=== PATIENT | female | born 1980 | race Two or more races ===

== ENCOUNTER 2018-07-30 17:20 | Emergency (ER) | payer MEDICAID, OTHER ==
[~2018-07-30] VITALS: Ht 160 cm; Wt 70.8 kg
[2018-07-30 17:40] VITALS: BP 123/66
[2018-07-30] MEDS ORDERED: cefTRIAXone SOD 1,000 MG VL IM ONE (19:15)
[2018-07-30] MEDS ORDERED: methylPREDNISolone SOD SUCC 125 MG/2 ML VL IM ONE (19:15)
== END 2018-07-30 19:54 | disposition home or self-care (01) ==
LOC: ER 17:27
DX: R21 Rash and other nonspecific skin eruption (principal)
CPT/HCPCS: 96372; 99283; J0696; J2930

== ENCOUNTER 2018-08-18 18:07 | Emergency (ER) | payer MEDICAID ==
[~2018-08-18] VITALS: Ht 160 cm; Wt 75.7 kg
[2018-08-18 19:15] VITALS: BP 129/76
== END 2018-08-18 21:29 | disposition home or self-care (01) ==
LOC: ER 18:15
DX: L03.313 Cellulitis of chest wall (principal); L30.9 Dermatitis, unspecified

== ENCOUNTER 2022-06-27 12:10 | Emergency (ER) | payer MEDICAID ==
[~2022-06-27] VITALS: Ht 160 cm; Wt 74.9 kg
[2022-06-27 13:39] VITALS: BP 111/54
[2022-06-27] MEDS ORDERED: IBUP800T27 PO (13:54)
== END 2022-06-27 14:01 | disposition home or self-care (01) ==
LOC: ER 12:10
DX: S83.92XA Sprain of unspecified site of left knee, initial encounter (principal); W18.09XA Striking against other object with subsequent fall, initial encounter; Y93.01 Activity, walking, marching and hiking; Y92.89 Other specified places as the place of occurrence of the external cause; Y99.8 Other external cause status
CPT/HCPCS: 73562

== ENCOUNTER 2023-03-29 15:55 | Emergency (ER) | payer MEDICAID ==
[~2023-03-29] VITALS: Ht 160 cm; Wt 76.6 kg
[~2023-03-29 15:55] MED LIST: IBUP-1456 PO
[2023-03-29] MEDS ORDERED: TETANUS-DIPTH-ACEL PERTUSSIS 0.5ML SYR Tdap IM ONE (17:00)
[2023-03-29] MEDS ORDERED: CEPH250C PO (17:50)
[2023-03-29 18:00] VITALS: BP 122/64; PULSE 94; RESP 18; TEMP 97.6; O2SAT 98
== END 2023-03-29 18:16 | disposition home or self-care (01) ==
LOC: ER 15:55
DX: S61.211A Laceration without foreign body of left index finger without damage to nail, initial encounter (principal); Z79.1 Long term (current) use of non-steroidal anti-inflammatories (NSAID); W26.8XXA Contact with other sharp object(s), not elsewhere classified, initial encounter; Y93.89 Activity, other specified; Y92.89 Other specified places as the place of occurrence of the external cause; Y99.8 Other external cause status
CPT/HCPCS: 12001

== ENCOUNTER 2023-07-22 22:45 | Emergency (ER) | payer MEDICAID ==
[~2023-07-22] VITALS: Ht 160 cm; Wt 76.0 kg
[~2023-07-22 22:45] MED LIST changes: +CEPH250C PO
[2023-07-22 23:32] VITALS: BP 135/74; PULSE 94; RESP 18; O2SAT 98
[2023-07-23 00:16] LABS: Basophils # (auto) 0.1 10 ^3/uL (0-0.2); Basophils % (auto) 0.7 % (0.0-2.0); Eosinophils # (auto) 0.2 10 ^3/uL (0-0.8); Eosinophils % (auto) 2.1 % (0.0-7.0); Hematocrit 39.6 % (36.0-46.0); Hemoglobin 13.2 g/dL (12.2-16.2); Lymphocytes # (auto) 1.4 10 ^3/uL (0.4-5.4); Lymphocytes % (auto) 18.9 % (10.0-50.0); Mean Corpuscular Hemoglobin 31.5 pg (28.0-32.0); Mean Corpuscular Hgb Conc. 33.4 g/dL (32.0-36.0); Mean Corpuscular Volume 94.5 fL (80.0-100.0); Monocytes # (auto) 0.5 10 ^3/uL (0-1.3); Monocytes % (auto) 7.6 % (0.0-12.0); Neutrophils # (auto) 5.1 10 ^3/uL (1.6-8.6); Neutrophils % (auto) 70.7 % (37.0-80.0); Nucleated Red Blood Cells % 0.1 %; Red Blood Cells 4.19 10^6/uL (4.0-5.20); White Blood Cell 7.2 10^3/uL (4.4-10.8)
[2023-07-23 00:24] LABS: Chloride 109 mmol/L (98-107); Potassium 3.8 mmol/L (3.5-5.1); Sodium 138 mmol/L (136-145)
[2023-07-23 00:25] LABS: Anion Gap 7 (5-15); Calcium 8.9 mg/dL (8.7-10.4); Carbon Dioxide 22 mmol/L (20-30)
[2023-07-23 00:30] LABS: BUN/Creatinine Ratio 11.4 (10.0-20.0); Blood Urea Nitrogen 9 mg/dL (9-23); Glucose 132 mg/dL (74-106)
[2023-07-23] MEDS ORDERED: HYDR50CA PO (00:59)
== END 2023-07-23 01:21 | disposition home or self-care (01) ==
LOC: ER 22:45
DX: F41.0 Panic disorder [episodic paroxysmal anxiety] (principal); Z79.899 Other long term (current) drug therapy
CPT/HCPCS: 36415; 80048; 85025